=== PATIENT | female | born 1960 | race Two or more races ===

== ENCOUNTER 2018-04-17 13:12 | Emergency (ER) | payer MEDICAID ==
[~2018-04-17] VITALS: Ht 167.6 cm; Wt 79.0 kg
[2018-04-17] MEDS ORDERED: MAGNESIUM 2 G PREMIX 50 ML IV STA (15:47)
[2018-04-17] MEDS ORDERED: METHYLPREDNISOLONE SOD SUCC 125 MG/2 ML VIAL IV STA (15:47)
[2018-04-17] MEDS ORDERED: SODIUM CHLORIDE 0.9% 1,000 ML IV ONE (15:47)
[2018-04-17] MEDS ORDERED: IPRATROPIUM BROMIDE (0.02%) 0.5MG/2.5ML NEB HHN STA (15:47)
[2018-04-17] MEDS ORDERED: ALBUTEROL (0.083%) 2.5MG/3ML NEB HHN STA (15:47)
[2018-04-17 16:27] LABS: BASOPHILS % 0.5 % (0.0-2.0); CHLORIDE 103 mEq/L (98-107); EOSINOPHILS % 2.2 % (0.0-5.0); HEMATOCRIT. 41.1 % (36.0-48.0); HEMOGLOBIN. 14.4 g/dL (12.0-16.0); LYMPHOCYTES % 15.4 % (20.0-50.0); MEAN CORPUSCULAR HEMOGLOBIN 30.4 pg (28.0-32.0); MONOCYTES % 7.5 % (2.0-8.0); NEUTROPHILS % 74.4 % (40.0-76.0); PLATELET 267 x1000/uL (130-400); RED BLOOD CELL COUNT 4.73 mill/uL (4.2-5.4); RED CELL DISTRIBUTION WIDTH 12.4 % (11.6-14.6)
[2018-04-17] MEDS ORDERED: ALBUTEROL (0.083%) 2.5MG/3ML NEB HHN ONE (18:45)
[2018-04-17 20:31] VITALS: BP 119/52
== END 2018-04-17 20:31 | disposition home or self-care (01) ==
LOC: ER 13:16
DX: J45.901 Unspecified asthma with (acute) exacerbation (principal); I10 Essential (primary) hypertension
CPT/HCPCS: 36415; 71045; 80053; 83605; 83880; 84484; 85025; 87040; 93005; 94640; 94644; 96365; 96375; 99285; J2930; J3475; J7030; J7611